=== PATIENT | female | born 1965 | race Caucasian/White ===

== ENCOUNTER → 2020-05-28 | Outpatient (CLI) | payer BC ==
[~2020-05-28] MED LIST: ASPI325 PO; CLON.1 PO; IBUP800 PO; LOSA50 PO; MECL25 PO
[2020-06-03 09:44] LABS: HPV 16 Negative (Negative); HPV 18 Negative (Negative); HPV OTHER HR TYPES Negative (Negative)
== END | disposition home or self-care (01) ==
LOC: LAB SHORT 15:00 → LAB 15:00
PROVIDERS: Nurse Practitioner Family
DX: Z01.419 Encounter for gynecological examination (general) (routine) without abnormal findings (principal)
CPT/HCPCS: 87624; 88142

== ENCOUNTER → 2021-04-28 | Outpatient (CLI) | payer BC ==
[2021-04-28 17:03] LABS: Albumin, Blood 3.6 g/dL (3.4-5.0); Calcium, Blood 9.1 mg/dL (8.5-10.1); Potassium, Blood 4.5 mmol/L (3.5-5.5)
[2021-04-28 17:16] LABS: Albumin/Globulin Ratio 1.1 (0.8-1.8); Bilirubin, Total 0.3 mg/dL (0.1-1.0); Bun/Creatinine Ratio 16.4 (12.0-20.0); Creatinine, Blood 1.4 mg/dL (0.40-1.00); Globulin, Blood 3.2 g/dL (2.2-4.0); Percent Saturation 21.4 % (15.0-50.0); Phosphorus, Blood 3.6 mg/dL (2.5-4.9); Total Protein, Blood 6.8 g/dL (6.4-8.2)
== END | disposition home or self-care (01) ==
LOC: LAB 10:36 → LAB SHORT 10:36
PROVIDERS: Internal Medicine Hematology & Oncology
DX: D50.0 Iron deficiency anemia secondary to blood loss (chronic) (principal); E53.8 Deficiency of other specified B group vitamins
CPT/HCPCS: 80053; 82607; 82728; 82746; 83540; 83550; 84100

== ENCOUNTER 2022-10-28 10:20 | Day surgery (SDC) | payer BC ==
[~2022-10-28] VITALS: Ht 160 cm; Wt 118.7 kg
[2022-10-28] MEDS ORDERED: Celexa20 MG PO (11:10)
[2022-10-28] MEDS ORDERED: ATOR10 PO (11:13)
[2022-10-28] MEDS ORDERED: METO50ER PO (11:13)
[2022-10-28] MEDS ORDERED: VALSARTAN80 MG PO (11:15)
--- NOTE | 2022-10-28 11:26 | NUR ---
10/28/22 Flower6 Eliana Cortez CALL LIGHT WITHIN REACH.
--- NOTE | 2022-10-28 12:05 | NUR ---
10/28/22 120Aly Castillo LIDOCAINE 2% WITH EPI 1:100,000 MIXED 1:1 WITH NACL TO CREATE A LOCAL SOLUTION OF LIDOCAINE 1% WITH EPI 1:200,000. 6MLS USED.
[2022-10-28 15:57] VITALS: BP 149/78
--- NOTE | 2022-10-28 16:00 | NUR ---
10/28/22 Pascual Esquivel PT COMPLAINED OF DIFFICULTY SWALLOWING IN SDU. SHE WAS SAT UPRIGHT AND SAID HER ABILITY TO SWALLOW WAS NORMAL AFTERWARD. MINIMAL TO NO SWELLING COULD BE FELT AT INCISION SITE.
== END 2022-10-28 16:40 | disposition home or self-care (01) ==
LOC: ORSCSDS 10:20
PROVIDERS: Otolaryngology
PROC: 0GTG0ZZ Resection of Left Thyroid Gland Lobe, Open Approach (ICD-10-PCS; principal; 2022-10-28 11:30)
DX: E04.2 Nontoxic multinodular goiter (principal); E11.22 Type 2 diabetes mellitus with diabetic chronic kidney disease; I12.9 Hypertensive chronic kidney disease with stage 1 through stage 4 chronic kidney disease, or unspecified chronic kidney disease; N18.9 Chronic kidney disease, unspecified; E03.9 Hypothyroidism, unspecified; G47.33 Obstructive sleep apnea (adult) (pediatric); E66.01 Morbid (severe) obesity due to excess calories; Z68.42 Body mass index [BMI] 45.0-49.9, adult; K21.9 Gastro-esophageal reflux disease without esophagitis; Z79.899 Other long term (current) drug therapy
CPT/HCPCS: 82947; 88307; J1100; J2250; J2370; J2405; J2704; J2765; J3010; J7120